=== PATIENT | male | born 1965 | race Caucasian/White ===

== ENCOUNTER → 2018-02-17 | Day surgery (SDC) | payer OTHER ==
[~2018-02-17] VITALS: Ht 182.9 cm; Wt 84.5 kg
[~2018-02-17] MED LIST: APIX1TAB3 PO; ATOR-22 PO; ATOR-54 PO; BACITRACIN 50000 UNIT VIAL ONE; BUPIVACAINE 0.25% 30 ML VIAL ONE; BUSP15TA70 PO; CLOP1TAB15 PO; DOCU-94 PO; DONE5TAB9 PO; FENTANYL CITRATE INJ 50 MCG/1 ML 2 ML VIAL ONE; LAMO150T PO; LAMO25TA PO; LIDOCAINE HCL 1% 20 ML VIAL ONE; MIDAZOLAM HCL 5 MG/ML 1 ML VIAL ONE; PRIM50TA29 PO; SERT-234 PO; SOTA80TA PO; TOPI100T20 PO
[2018-02-17 14:07] VITALS: BP 138/88; PULSE 70; TEMP 36.9; O2SAT 95; Ht 182.9 cm; Wt 84.5 kg
--- NOTE | 2018-02-17 14:39 | History & Physical Bridge Note ---
H&P Re-Evaluation Bridge Note: I have examined the patient, reviewed the History & Physical and in the interval since the performance of the History & Physical I have noted the following changes of clinical significance: No changes noted
--- NOTE | 2018-02-17 14:39 | Pre Sedation Assessment ---
Pre Sedation Assessment General Date of Sedation: Feb 17, 2018. Vital Signs Past 12 Hours Date Time Temp Pulse Resp B/P (MAP) Pulse Ox O2 Delivery O2 Flow Rate FiO2 02/17/18 14:07 36.9 70 18 138/88 (105) 95 Room Air Review Cardiovascular: regular rate, rhythm Lungs: lungs clear, normal breath sounds Pre-Sedation Airway Assessment Smoking Status: Former Smoker Hx of Sleep Apnea: No Thyro-mental Distance: < or =3 Finger Breadths Oral Cavity: Capped Teeth Mallampati Classification: Class II ASA Classification: Class II NPO Status Date of Last Intake of Fluids: Feb 16, 2018 Time of Last Intake of Fluids: 1800 Date of Last Intake of Solids: Feb 16, 2018 Time of Last Intake of Solids: 1800 Procedure Planning Contraindications for Sedation: None Current Medications Reviewed: Yes Notes The planned sedation has been discussed with the patient. Informed Consent was obtained. I have identified the patient, determined the appropriateness of sedation and have assessed the patient immediately prior to the procedure. All medicine(s) and interventions are by my order.
--- NOTE | 2018-02-17 15:43 | Post Sedation Assessment ---
Post Sedation Assessment General Date of Sedation Feb 17, 2018. Vital Signs: Vital Signs Past 12 Hours Date Time Temp Pulse Resp B/P (MAP) Pulse Ox O2 Delivery O2 Flow Rate FiO2 02/17/18 15:35 70 18 126/70 (88) 94 Room Air 02/17/18 15:20 69 18 101/69 (80) 94 Room Air 02/17/18 14:07 36.9 70 18 138/88 (105) 95 Room Air Post Procedure Recovery Score Activity: (2) Moves 4 extremities * Respiration: (2) Deep breath/cough Circulation: (2) +/-20% PreAnes Value Consciousness: (2) Fully Awake Oxygen Saturation: (2) > 92% On Room Air Post Anesthesia Score: 10 Discharge Sedation Level of Care: Fast Track Phase II Post Sedation Plan On clinical assessment, the patient appears to have tolerated the sedation without complications. Patient is recovering as anticipated. Patient will continue to be monitored by nursing and may be discharged when sedation discharge criteria are met per below protocol. Upon Completions of procedure and additional 15 minutes continue every 5 minute vital signs and the P.A.R. score; then discharge to a Phase I or Fast Track to Phase II per the following guidelines: * Discharge Patient to appropriate Phase II area if PAR is 8 or greater or return to pre- procedure baseline. The post - procedure orders will be as directed. * If PAR score is less than 8 or not return to pre-procedure baseline then patient will follow Phase I monitoring till PAR is reached for Phase II. The Phase I may be done in procedure room or may call to secure a Phase I area. * If naloxone or flumazenil are used for reversal, hold in Phase I for an additional 60 -120 minutes before discharge to Phase II. Please call the Sedation Physician to re-evaluate and complete post-note for discharge to Phase II area. Do NOT discharge from procedure sedation or Phase 1 until post- sedation evaluation note is complete by procedure /sedation MD Sedation Discharge Instructions to be given to the patient at discharge to home.
--- NOTE | 2018-02-17 15:44 | [facility] Post Operative Brief Note ---
Immediate Operative Summary Operative Date Feb 17, 2018. Pre-Operative Diagnosis snd, ppm at MAAME Post-Operative Diagnosis same Procedure(s) Performed dual chamber rate responsive pacemaker generator change Surgeon aleida marino Photograph Editor Surgeon(s) none Estimated Blood Loss <10cc Findings See Below see official report Fluids (cc crystalloids) 100cc Specimens none Drains None Anesthesia Type IV Sedat Cons RN Only Complication(s) none Disposition Accompanied Pt To Recover: yes Disposition: PCU Overlapping Procedure I was present for: the critical portions of procedure. I was immediately available: during the entire case Back up surgeon: was not required during procedure
--- NOTE | 2018-02-17 15:46 | Discharge Instructions ---
Discharge Instructions Date of Service Feb 17, 2018. Visit Reason for Visit: Elective Replacement Indicator Discharge Discharge Diagnosis / Problem: snd Discharge Goals Goal(s): Improve function Activity Recommendations Activity Limitations: resume your previous activity Shower/Bathe: tomorrow Driving or Machine Use: resume 1 day after discharge Anesthesia . Post Anesthesia Instructions: If you have had General Anesthesia or IV Sedation: * Do not drive today. * Resume driving when surgeon permits. * Do not make important decisions or sign legal documents today. * Call surgeon for: 1. Temperature elevations greater than 101 degrees F. 2. Uncontrollable pain. 3. Excessive bleeding. 4. Persistent nausea and vomiting. 5. Medication intolerance (nausea, vomiting or rash). * For nausea and vomiting use only clear liquids such as: tea, soda, bouillon until nausea subsides, then gradually increase diet as tolerated. * If you have any concerns or questions, call your surgeon's office. If physician is unavailable and it is an emergency, call 911 or go to the nearest emergency room. . Instructions / Follow-Up Instructions / Follow-Up ACTIVITY RECOMMENDATIONS: * None SPECIAL CARE INSTRUCTIONS: * If bleeding occurs, apply direct pressure to area for 5 minutes. * Call your doctor if you have severe pain, fever, drainage or bleeding at site. * Keep dressing on and dry for 48 hours then remove. * Keep any scheduled doctor's appointment. * Implant Card - hand held device with website information given. SKIN IRRITATION: * You may experience some redness and/or swelling in the area where radiation was administered. If any skin irritation occurs, please contact your family physician. FOLLOW UP VISIT: Keep any scheduled doctor appointments. Diet Recommendations Recommended Home Diet: resume previous diet Procedures Procedures Performed: dual chamber rate responsive pacemaker generator change Pending Studies Studies pending at discharge: no Medical Emergencies . Who to Call and When: Medical Emergencies: If at any time you feel your situation is an emergency, please call 911 immediately. . Non-Emergent Contact Non-Emergency issues call your: [employer] . . "Provider Documentation" section prepared by Myla Luna. .
[2018-02-17 15:51] VITALS: BP 135/94; PULSE 70; TEMP 36.6; O2SAT 96
[2018-02-17 16:05] VITALS: BP 135/96; PULSE 70; O2SAT 96
[2018-02-17 16:35] VITALS: BP 135/94; PULSE 70; O2SAT 96
--- NOTE | 2018-02-18 19:51 | OPERATIVE REPORT ---
DATE OF OPERATION: 02/17/2018 PREOPERATIVE DIAGNOSES: Pacemaker at elective replacement indicator (MAAME), sinus node dysfunction. POSTOPERATIVE DIAGNOSIS: Pacemaker at elective replacement indicator (MAAME), sinus node dysfunction. PROCEDURE: Dual chamber rate responsive permanent pacemaker generator change. SURGEON: Myla Luna DO. ASSISTANTS: None. ANESTHESIA: Monitored conscious sedation administered under my supervision by Kathy Hummel. Start time 14:54; end time 15:20. Total of 3 mg of Versed and 75 mcg of fentanyl. IV FLUIDS: 100 mL. ANTIBIOTICS: Two grams of Ancef. BLOOD LOSS: Less than 10 mL. COMPLICATIONS: None. CONDITION: Stable. URINE OUTPUT: None. SPECIMENS: None. FINDINGS: See below. DRAINS: None. INDICATIONS: This is a 52-year-old gentleman with past medical history significant for sinus node dysfunction who underwent a dual chamber pacemaker on 10/29/2007, paroxysmal atrial fibrillation, on sotalol as well as Eliquis. His CHADS2-VASc score is 1, history of AVRT ablation in 06/[address] Lea, coronary artery disease, mild disease by catheterization in 2006, mid LAD disease, nonobstructive, hypertension, hyperlipidemia, recent incarcerated hernia, status post emergent hernia surgery, history of absence seizures. His most recent pacemaker interrogation was found to hit MAAME and was recommended generator change. CONSENT: Consent was obtained prior to the patient going into electrophysiology lab. The patient was informed the risks, benefits, and alternatives of the procedure. Risks include but not limited to sudden cardiac , cardiac arrhythmias, cerebrovascular accident, myocardial infarction, bleeding, and infection. The patient understood these risks and agreed to the procedure as planned and informed consent was obtained. DESCRIPTION OF THE PROCEDURE: The patient was brought into the electrophysiology lab in a fasting state. He was connected to continuous cardiac monitoring. A timeout was performed to ensure patient's identity and procedure correctly. The patient was prepped and draped over the left infraclavicular space in normal surgical standard fashion. Monitored conscious sedation was given throughout the procedure for the patient's comfort level. [place] precautions maintained throughout the procedure. 20 mL of 1% lidocaine, bupivacaine mixture were given over the prior surgical incision. Incision was made over the prior surgical incision. Blunt dissection was performed down to the prior pulse generator. The capsule was disrupted using iris scissors and the pulse generator was freed from the capsule and removed from the body. The leads were tested intraoperatively, see below for results. The capsule was disrupted inferiorly and caudally to allow for new blood flow. The pocket was then flushed with copious amounts of bacitracin saline wash and inspected for hemostasis. The leads were then attached to the new pulse generator and making sure that the pins were in appropriate position, passed set screw and set screws were all tightened. The pulse generator was then placed in an antibiotic pouch, followed then by being placed in the pocket, making sure that the leads were lying flat beneath the device. Myron stat was placed in the pocket as the patient is on Eliquis. The incision was then closed in 3-layer fashion with 2-0 Vicryl interrupted suture, followed by 3-0 Vicryl suture, followed by 4-0 Monocryl running stitch, and Dermabond was applied. EQUIPMENT: 1. Explanted generator is a Korey Law DR [id number], serial #[id number], implanted 10/29/2007. New pulse generator is a [employer] Aaliyah XT DR ANGELI De La Cruz [id number], serial [id number]. 2. Right atrial lead is a [employer]onic [id number], implanted 10/29/2007. 3. The right ventricular lead is a Biotronik [id number], serial #[id number], implanted 10/29/2007. 4. Antibiotic Tyrx pouch lot number [id number], expiration 05/05/2018. INTRAOPERATIVE TESTIN. Right atrial lead: P-wave 2.2 millivolts, impedance 45 ohms, threshold 0.5 volts at 0.9 milliamps. 2. Right ventricular lead: R-wave is 5.7 millivolts, impedance ohms, threshold 0.4 volts at 0.6 milliamps. FINAL MEASUREMENTS THROUGH THE DEVICE: 1. Right atrial lead: P-wave is 1.9 millivolts, impedance 437 ohms, threshold 0.5 volts at 0.4 milliseconds. 3. Right ventricular lead: R-wave 6.3 millivolts, impedance 570 ohms, threshold 0.5 volts at 0.4 milliseconds. FINAL PARAMETERS: MVP-R 60/145. Right atrial amplitude 1.5 volts, pulse width 0.4 milliseconds, sensitivity 0.3 millivolts. Right ventricular amplitude 1.5 volts, pulse width 0.4 milliseconds, sensitivity 0.9 millivolts. IMPRESSION: Successful dual chamber rate responsive permanent pacemaker generator change secondary to pacemaker at MAAME and sinus node dysfunction. PLAN: Monitor patient post-sedation. He can continue his home medications. He can shower in 2 days. Keep the pressure dressing on for another day and he should follow up in our [facility] device clinic for wound check in 7-10 days. I attest to the content of the Intraoperative Record and any orders documented therein. Any exception s are noted below.
== END | disposition home or self-care (01) ==
LOC: C.ACU 13:16
PROVIDERS: ATTEND Internal Medicine
DX: Z45.010 Encounter for checking and testing of cardiac pacemaker pulse generator [battery] (principal); E78.5 Hyperlipidemia, unspecified; I48.0 Paroxysmal atrial fibrillation; I10 Essential (primary) hypertension; I25.10 Atherosclerotic heart disease of native coronary artery without angina pectoris; G62.9 Polyneuropathy, unspecified; G25.0 Essential tremor; Z87.891 Personal history of nicotine dependence